=== PATIENT | female | born 1995 | race American Indian/Alaskan Native ===

== ENCOUNTER 2020-08-15 14:00 | Inpatient (IN) | payer OTHER ==
[~2020-08-15] VITALS: Ht 162.6 cm; Wt 89.4 kg
[2020-08-20] MEDS ORDERED: PRENATAL TABLE1 EAC1 PO (04:42)
== END 2020-08-22 14:53 | disposition home or self-care (01) | DRG 805 ==
LOC: LDR 08-18 14:00 → OB/GYN 08-20 17:30
PROVIDERS: ADMIT Obstetrics & Gynecology; ATTEND Obstetrics & Gynecology
PROC: 10E0XZZ Delivery of Products of Conception, External Approach (ICD-10-PCS; principal; 2020-08-20)
PROC: 0KQM0ZZ Repair Perineum Muscle, Open Approach (ICD-10-PCS; 2020-08-20)
PROC: 4A1HXFZ Monitoring of Products of Conception, Cardiac Rhythm, External Approach (ICD-10-PCS; 2020-08-20)
DX: O70.1 Second degree perineal laceration during delivery (principal); U07.1 COVID-19; Z37.0 Single live birth; O98.52 Other viral diseases complicating childbirth; Z3A.40 40 weeks gestation of pregnancy

== ENCOUNTER 2020-08-20 04:24 | Outpatient (CLI) | payer OTHER ==
[2020-08-20] MEDS ORDERED: PRENATAL TABLE1 EAC1 PO (04:42)
== END 2020-08-20 10:41 | disposition still patient (30) ==
LOC: OBS/DEL 04:24
PROVIDERS: ATTEND Obstetrics & Gynecology
DX: O48.0 Post-term pregnancy (principal); Z20.828 Contact with and (suspected) exposure to other viral communicable diseases